=== PATIENT | female | born 1965 | race African-American/Black ===

== ENCOUNTER → 2018-08-24 | Day surgery (SDC) | payer MEDICAID ==
[~2018-08-24] VITALS: Ht 162.6 cm; Wt 59.0 kg
[~2018-08-24] MED LIST: ACETAMINOPHEN 325MG TABLET PO SCH; ALBU18HF2 IH; B C POWDER PO; HYDR-459 PO; IBUP-2030 PO; LACTATED RINGERS 1,000 ML IV SCH; LIDOCAINE HCL/PF 1% 10 MG/ML 5ML VIAL ONE; MIDAZOLAM HCL 5 MG/5 ML VIAL ONE; OMEP20TA2 PO; ONDANSETRON HCL 4MG/2ML INJ IV PRN; PROPOFOL 200MG/20ML VIAL IV ONE; SIMETHICONE 40 MG/0.6 ML 30ML ONE; SODIUM CHLORIDE 0.9% 1,000 ML IV ONE; SUCCINYLCHOLINE CHLORIDE 200MG/10ML IV ONE; TRAM50TA3 PO
[2018-08-24 08:45] LABS: HEMATOCRIT 38.5 % (36.0-48.0); HEMOGLOBIN 12.7 g/dL (12.0-16.0); MEAN CORPUSCULAR HEMOGLOBIN 29.7 pg (28.0-32.0); MEAN CORPUSCULAR VOLUME 89.9 fL (81.0-99.0); PLATELET 247 x1000/uL (130-400); RED BLOOD CELL COUNT 4.28 mill/uL (4.2-5.4); RED CELL DISTRIBUTION WIDTH 13.7 % (11.6-14.6)
[2018-08-24 08:52] LABS: CHLORIDE 108 mEq/L (98-107)
[2018-08-24 08:53] LABS: PARTIAL THROMBOPLASTIN TIME 30.9 sec (23.4-31.0)
== END | disposition home or self-care (01) ==
LOC: OR 07:56
PROVIDERS: ATTEND Radiology Diagnostic Radiology
DX: K29.50 Unspecified chronic gastritis without bleeding (principal); K44.9 Diaphragmatic hernia without obstruction or gangrene; J45.909 Unspecified asthma, uncomplicated; K21.9 Gastro-esophageal reflux disease without esophagitis
CPT/HCPCS: 36415; 43239; 80048; 85027; 85610; 85730; 88305; 88312; 88313; 93005; J2250; J3490; J0330; J2704